=== PATIENT | male | born 1980 | race Caucasian/White ===

== ENCOUNTER 2020-07-03 15:27 | Emergency (ER) | payer SELFPAY ==
[~2020-07-03] VITALS: Ht 180 cm; Wt 116.4 kg
--- NOTE | 2020-07-03 15:48 | ED EENT ---
History of Present Illness General Chief Complaint: Eye Problems Stated Complaint: RT EYE OPTICAL NERVE SWELLING Source: patient Exam Limitations: no limitations History of Present Illness Date Seen by Provider: Jul 03, 2020 Time Seen by Provider: 15:40 Initial Comments 39-year-old male presents from the eye doctor's office where he was referred from for findings of optic neuritis in his right eye by the manager critical care unit. He states that for the last 3 to 4 days his vision in his right eye became "foggy". States he did have some problems with his right eye in the past been a little blurry, but this has been significantly worse. Denies any pain, nausea or vomiting, headache, dizziness or weakness. Denies previous occurrence of similar symptoms. Allergies and Home Medications Allergies Coded Allergies: NSAIDS (Non-Steroidal Anti-Inflamma (Verified Allergy, Unknown, finger swelling , 07/03/20) Patient Home Medication List Home Medication List Reviewed: Yes Review of Systems Review of Systems Constitutional: no symptoms reported; No chills, No diaphoresis, No dizziness, No fever, No malaise, No weakness Eyes: See HPI; Denies Blindness; Blurred Vision; Denies Drainage; Decreased Acu ity; Denies Foreign Body Sensation, Denies Inflammation, Denies Pain, Denies Photophobia, Denies Previous Injury, Denies Shadows, Denies Tunnel Vision; Vision Changes; Denies Contact Lenses, Denies Glasses Ears: No Symptoms Reported Nose: no symptoms reported Mouth: no symptoms reported Throat: no symptoms reported Respiratory: no symptoms reported Cardiovascular: no symptoms reported Gastrointestinal: no symptoms reported Neurological: No Symptoms Reported, See HPI Past Nrcycrs-Iwizcn-Ipjyuk Hx Past Med/Social Hx: Reviewed Nursing Past Med/Soc Hx Physical Exam Vital Signs Vital Signs - First Documented 07/03/20 15:43 Temp 36.8 Pulse 104 Resp 18 B/P (MAP) 141/97 (112) Pulse Ox 98 Height, Weight, BMI Height: '" Weight: lbs. oz. kg; BMI Method: General Appearance: WD/WN, no apparent distress Eyes: bilateral eye normal inspection, bilateral eye PERRL, bilateral eye EOMI Neurologic/Psychiatric: barrel marker II-XII nml as tested, no motor/sensory deficits, alert, normal mood/affect, oriented x 3 Skin: normal color, warm/dry Progress/Results/Core Measures Results/Orders My Orders Orders - ROVENSTINE,CINTHIA L DO Ct Orbit/Sella/Iac Wo (07/03/20 15:42) Vital Signs/I&O 07/03/20 07/03/20 15:43 18:15 Temp 36.8 37.0 Pulse 104 103 Resp 18 18 B/P (MAP) 141/97 (112) 138/92 Pulse Ox 98 96 Progress Progress Note : Progress Note Called the referring [facility] after CT scan to discuss presentation and ocular findings.... She confirmed he was a new patient w c/o 3 days of blurred vision R eye without pain or trauma. IOP was normal in both eyes. Visual acuities: R 20/200, L 20/20. R eye w edematous optic disc. Called [facility] and Dr Trotter accepts for transfer. Patient very reluctant to go to or any hospital. Just wants to be treated and go on his way. Explained that further evaluation was needed and that Outpatient treatment was not an option for what he is presenting with and that delaying care could result in permanent deficits or blindness in his R eye. He agrees to go to via private vehicle. Initial ECG Impression Date: Jul 03, 2020 Diagnostic Imaging Diagonstic Imaging: CT Comments IMPRESSION: 1. Slight asymmetric prominence of the right optic nerve relative to the left. This may represent secondary signs of optic neuritis. If continued concern for optic neuritis recommend MRI of the orbits with and without contrast to further characterize. Dictated on workstation # [id number] Dict: 07/03/20 1617 Trans: 07/03/20 1625 [facility] [id number] Interpreted by: JUDIE FRIEDMAN DO Electronically signed by: Departure Impression Primary Impression: Optic neuritis Disposition: XFER SHT-TRM HOSP ([facility]) Condition: Stable Transfer Transfer Reason: Exceeds level of care Transfer Facility: [facility] Departure-Patient Inst. Referrals: NO,LOCAL PHYSICIAN (PCP/Family) Primary Care Physician CINTHIA ATKINSON DO Jul 03, 2020 15:48
--- NOTE | 2020-07-03 16:26 | Diagnostic Imaging Report ---
PROCEDURE: CT orbit without contrast. TECHNIQUE: Multiple contiguous axial images were obtained through the facial bones without the use of intravenous contrast. Auto Exposure Controls were utilized during the CT exam to meet ALARA standards for radiation dose reduction. INDICATION: Decreased vision in right eye for 4 days. No known injury. Concern for optic neuritis. COMPARISON: None. FINDINGS: No evidence of globe rupture. The retrobulbar fat is clear without evidence of inflammation or edema. The extraocular muscles are symmetric. No evidence of foreign body in the orbits. There is slight asymmetric prominence of the right optic nerve relative to the left. No obvious mass is identified. The paranasal sinuses including mastoid air cells are clear. 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 No acute facial fractures are identified. The included intracranial contents demonstrate no acute abnormalities. IMPRESSION: 1. Slight asymmetric prominence of the right optic nerve relative to the left. This may represent secondary signs of optic neuritis. If continued concern for optic neuritis recommend MRI of the orbits with and without contrast to further characterize. Dictated by: Dictated on workstation # [id number]
[2020-07-03 18:15] VITALS: BP 138/92
--- NOTE | 2020-07-03 18:18 | NUR ---
Patient is transferring to via private vehicle. Instructed to go straight from ED to . Patient asked if he would still have a bed at if he went later or in the morning. This nurse again informed patient he needs to go straight from here to . Patient states he read on the internet that optic neuritis will go away on its own. This RN informed patient that permanent vision damage could occur and treatment is recommended. Patient agrees and states he will get to as soon as possible.
== END 2020-07-03 18:18 | disposition short-term general hospital (02) ==
LOC: ER FS 15:30
DX: H46.9 Unspecified optic neuritis (principal); Z88.6 Allergy status to analgesic agent
CPT/HCPCS: 70480